=== PATIENT | female | born 1930 | race Caucasian/White ===

== ENCOUNTER 2019-05-20 12:36 | Inpatient (IN) | payer MEDICARE, BC ==
[2019-05-20] VITALS (7 sets, daily range): BP systolic 97–109; BP diastolic 36–47
[~2019-05-20] VITALS: Ht 157.5 cm; Wt 88.5 kg
[~2019-05-20 12:36] MED LIST: ATOR40TA PO; BETA1TAB14 PO; CALC-955 PO; CARV-50 PO; CYAN100082 PO; DIPH-423 PO; FEBU40TA PO; FERR325T28 PO; Famotidine PO; Furosemide PO; HYDR-3965 PO; INSU100I12 SQ; INSU100V36 SQ; Non-Formulary PO; RES15C PO; SYN0.1T PO; ZES2.5T PO
[2019-05-20] MEDS ORDERED: pantoprazole 40 MG vial IV ONE (13:05)
[2019-05-20] MEDS ORDERED: ESOMEPRAZOLE 40 MG VIAL IV ONE (13:15)
[2019-05-20 13:27] LABS: BASOPHILS % (AUTO) 0.6 % (0-1); EOSINOPHILS % (AUTO) 0.5 % (0-6); LYMPHOCYTES # (AUTO) 0.4 X10'3 (1.1-4.8); MEAN CORPUSCULAR HEMOGLOBIN 32.3 PG (27.0-31.0); MEAN CORPUSCULAR HGB CONC 33.2 g/dL (33.0-36.5); MEAN CORPUSCULAR VOLUME 97.4 FL (78-98); MEAN PLATELET VOLUME 8.9 FL (7.4-10.4); MONOCYTES # (AUTO) 0.6 X10'3 (0-0.9); MONOCYTES % (AUTO) 7.9 % (2-12); NEUTROPHILS # (AUTO) 6.9 X10'3 (1.8-7.7); PLATELET COUNT 132 X10'3 (140-440); RED BLOOD COUNT 1.82 X10'6 (4.20-5.60); RED CELL DISTRIBUTION WIDTH 14.7 % (11.5-14.5)
[2019-05-20 13:34] LABS: HEMATOCRIT 17.7 % (35.0-45.0); HEMOGLOBIN 5.9 g/dl (12.0-16.0)
[2019-05-20 13:42] LABS: ALANINE AMINOTRANSFERASE 23 U/L (12-78); ALBUMIN 1.7 G/DL (3.4-5.0); ALBUMIN/GLOBULIN RATIO 0.7 (1.1-1.5); ALKALINE PHOSPHATASE 55 IU/L (46-116); ANION GAP 6 (8-16); ASPARTATE AMINO TRANSFERASE 11 U/L (10-37); BILIRUBIN,TOTAL 0.5 MG/DL (0.1-1.0); BLOOD UREA NITROGEN 115 MG/DL (7-18); BUN/CREATININE RATIO 57.2 (6.6-38.0); CALCIUM 7.8 MG/DL (8.5-10.1); CHLORIDE 108 MMOL/L (99-107); CREATININE 2.01 MG/DL (0.40-0.90); GLUCOSE 165 MG/DL (70-104); POTASSIUM 5.2 MMOL/L (3.5-5.1); SODIUM 139 MMOL/L (135-145); TOTAL CARBON DIOXIDE 25.3 MMOL/L (24-32); TOTAL PROTEIN 4.2 G/DL (6.4-8.2); eGFR 23 ML/MIN
[2019-05-20 14:01] LABS: PARTIAL THROMBOPLASTIN TIME 39 SECONDS (22-32)
[2019-05-20] MEDS ORDERED: phytonadione inj. 5 MG in normal saline 100ml IV soln 99.5 ML IV ONE (14:35)
[2019-05-20 14:55] LABS: CLARITY,URINE SLIGHTLY CLOUDY (Clear); COLOR,URINE YELLOW (Yellow); GLUCOSE, URINE NEGATIVE (Neg); KETONES,URINE NEGATIVE (Neg); LEUKOCYTE ESTERASE ,URINE SMALL (Neg); NITRITES, URINE NEGATIVE (Neg); OCCULT BLOOD,URINE NEGATIVE (Neg); PROTEIN,URINE NEGATIVE (Neg); UA COLLECTION TYPE STRAIGHT CATH; UROBILINOGEN,URINE 0.2 E.U/dL (0.2-1.0)
--- NOTE | 2019-05-20 15:08 | NUR ---
WENDY IN THE LAB CALLED STATING PT "HAS AN ANTIBODY AND IT WILL STILL BE APROX 15-20MIN" SHE INQUIRED IF PT HAS HAD TRANSFUSIONS IN THE PAST OR MULTIPLE KIDS. PER PT SHE IS NOT SURE IF SHE HAS HAD A TRANSFUSION IN THE PAST AND SHE HAS 3 KIDS. WENDY NOTIFIED
[2019-05-20] MEDS ORDERED: ATOR10TA70 PO (15:13)
[2019-05-20] MEDS ORDERED: FURO-149 PO (15:16)
--- NOTE | 2019-05-20 15:18 | NUR ---
spoke with dr meng about pt bp 80/46. no new orders. stated awaiting call back from dr dan about admission. will continue to monitor pt.
--- NOTE | 2019-05-20 15:20 | NUR ---
DR HAYWOOD NOTIFIED BLOOD TAKING LONGER DUE TO "ANTIBODIES PER BLOOD BANK.
[2019-05-20] MEDS ORDERED: WARF6TAB49 PO ×2 (15:21→15:48)
[2019-05-20] MEDS ORDERED: LEVO88TA7 PO (15:23)
[2019-05-20 15:26] LABS: BACTERIA,URINE 1+ /HPF (Neg); SQUAMOUS EPITHELIAL CELL,UR NONE SEEN /LPF (FEW)
[2019-05-20] MEDS ORDERED: LACT1CAP65 PO (15:26)
[2019-05-20 15:27] LABS: HYALINE CASTS 0-3 /LPF (NEGATIVE); RBC,URINE 0-2 /HPF (0-2); WBC CLUMPS,URINE MODERATE /HPF (NEGATIVE)
[2019-05-20] MEDS ORDERED: MULT-1133 PO (15:38)
[2019-05-20] MEDS ORDERED: FISH12002 PO (15:40)
[2019-05-20 15:43] LABS: ANISOCYTOSIS 1+; PLATELET ESTIMATE DECREASED; TOTAL CELLS COUNTED 100
[2019-05-20] MEDS ORDERED: ANTI1CAP5 PO (15:43)
[2019-05-20 15:44] LABS: SCHISTOCYTES FEW
[2019-05-20 15:45] LABS: POLYCHROMASIA FEW
[2019-05-20] MEDS ORDERED: IBAN150T21 PO (15:50)
[2019-05-20] MEDS ORDERED: OLME5TAB6 PO (15:54)
[2019-05-20] MEDS ORDERED: sodium phosphate inj. 30 MMOL in dextrose 5%-water 250 ML IV PRN (16:00)
[2019-05-20] MEDS ORDERED: magnesium 2GM in 50ml NS 50 ML IV PRN (16:00)
[2019-05-20] MEDS ORDERED: magnesium Cl slow-release 64mg tablet PO PRN (16:00)
[2019-05-20] MEDS ORDERED: Neutra Phos packet PO PRN (16:00)
[2019-05-20] MEDS ORDERED: magnesium 4gm in 100ml NS 100 ML IV PRN (16:00)
[2019-05-20] MEDS ORDERED: potassium Cl 20 mEq SR tablet PO PRN ×2 (16:00)
[2019-05-20] MEDS ORDERED: ondansetron/PF 4mg/2ml inj IV PRN (16:00)
[2019-05-20] MEDS ORDERED: sodium phosphate inj. 15 MMOL in dextrose 5%-water 150 ML IV PRN (16:00)
[2019-05-20] MEDS: sodium chloride 0.45% 1,000 ML IV SCH (16:00)
[2019-05-20] MEDS: K, MAG and/or Phos replacement - Verify level? MC SCH (16:00)
[2019-05-20] MEDS: pantoprazole 40MG/NS 100ML BAG 100 ML IV SCH ×2 (16:34→21:43)
[2019-05-20 17:10] LABS: AMYLASE 31 U/L (25-115); LIPASE 120 U/L (73-393)
[2019-05-20 17:49] LABS: HEMOGLOBIN A1C 5.6 % (4.5-6.2)
[2019-05-20 18:02] LABS: MEAN CORPUSCULAR HEMOGLOBIN 31.2 PG (27.0-31.0); MEAN CORPUSCULAR HGB CONC 33.8 g/dL (33.0-36.5); MEAN PLATELET VOLUME 8.3 FL (7.4-10.4); PLATELET COUNT 135 X10'3 (140-440); RED BLOOD COUNT 2.26 X10'6 (4.20-5.60); RED CELL DISTRIBUTION WIDTH 15.9 % (11.5-14.5); WHITE BLOOD COUNT 11.7 X10'3 (4.5-11.0)
[2019-05-20 18:07] LABS: HEMATOCRIT 20.8 % (35.0-45.0)
--- NOTE | 2019-05-20 19:37 | NUR ---
SECOND UNIT OF BLOOD TRANSFUSION COMPLETED. WILL HAVE A REPEAT H&H DRAWN IN AN HOUR PER SKIP PIT WORKER MARCI.
[2019-05-20] MEDS: lactobacillus rhamnosus 10,000 MMU CELLS/CAPSULE PO SCH (20:00)
[2019-05-20] MEDS: carVEDilol 12.5mg tablet PO SCH (20:00)
[2019-05-20] MEDS ORDERED: desmopressin inj. 20 MCG in normal saline 100ml IV soln 100 ML IV ONE (20:25)
[2019-05-20] MEDS: atorvastatin 10mg tablet PO SCH (21:00)
[2019-05-20 21:26] LABS: HEMATOCRIT 25.3 % (35.0-45.0); HEMOGLOBIN 8.6 g/dl (12.0-16.0); MEAN CORPUSCULAR HEMOGLOBIN 31.1 PG (27.0-31.0); MEAN CORPUSCULAR HGB CONC 33.9 g/dL (33.0-36.5); MEAN CORPUSCULAR VOLUME 91.9 FL (78-98); MEAN PLATELET VOLUME 8.6 FL (7.4-10.4); PLATELET COUNT 123 X10'3 (140-440); RED BLOOD COUNT 2.76 X10'6 (4.20-5.60); RED CELL DISTRIBUTION WIDTH 15.7 % (11.5-14.5)
--- NOTE | 2019-05-20 21:50 | NUR ---
GOT PT ANOTHER BLANKET, NO FURTHER NEEDS AT THIS TIME.
[2019-05-21] VITALS (38 sets, daily range): BP systolic 67–125; BP diastolic 25–53
[2019-05-21] MEDS: pantoprazole 40MG/NS 100ML BAG 100 ML IV SCH ×5 (03:00→18:56)
[2019-05-21] MEDS: sodium chloride 0.45% 1,000 ML IV SCH ×3 (03:22→19:35)
[2019-05-21 05:45] LABS: BASOPHILS % (AUTO) 0.5 % (0-1); EOSINOPHILS % (AUTO) 0.3 % (0-6); HEMATOCRIT 26.6 % (35.0-45.0); HEMOGLOBIN 9.2 g/dl (12.0-16.0); LYMPHOCYTES # (AUTO) 0.6 X10'3 (1.1-4.8); LYMPHOCYTES % (AUTO) 6.4 % (21-51); MEAN CORPUSCULAR HEMOGLOBIN 31.6 PG (27.0-31.0); MEAN CORPUSCULAR HGB CONC 34.6 g/dL (33.0-36.5); MEAN CORPUSCULAR VOLUME 91.2 FL (78-98); MEAN PLATELET VOLUME 8.8 FL (7.4-10.4); MONOCYTES # (AUTO) 0.6 X10'3 (0-0.9); MONOCYTES % (AUTO) 6.6 % (2-12); NEUTROPHILS # (AUTO) 7.5 X10'3 (1.8-7.7); NEUTROPHILS % (AUTO) 86.2 % (42-75); PLATELET COUNT 113 X10'3 (140-440); RED BLOOD COUNT 2.91 X10'6 (4.20-5.60); RED CELL DISTRIBUTION WIDTH 15.6 % (11.5-14.5); WHITE BLOOD COUNT 8.7 X10'3 (4.5-11.0)
[2019-05-21 05:59] LABS: PARTIAL THROMBOPLASTIN TIME 25 SECONDS (22-32)
[2019-05-21 06:09] LABS: ALANINE AMINOTRANSFERASE 21 U/L (12-78); ALBUMIN/GLOBULIN RATIO 0.8 (1.1-1.5); ALKALINE PHOSPHATASE 44 IU/L (46-116); ANION GAP 10 (8-16); ASPARTATE AMINO TRANSFERASE 9 U/L (10-37); BLOOD UREA NITROGEN 123 MG/DL (7-18); BUN/CREATININE RATIO 61.8 (6.6-38.0); CALCIUM 7.6 MG/DL (8.5-10.1); CHLORIDE 109 MMOL/L (99-107); CREATININE 1.99 MG/DL (0.40-0.90); GLUCOSE 125 MG/DL (70-104); MAGNESIUM 1.6 MG/DL (1.5-2.4); PHOSPHORUS 2.1 MG/DL (2.3-4.5); POTASSIUM 4.3 MMOL/L (3.5-5.1); SODIUM 141 MMOL/L (135-145); TOTAL CARBON DIOXIDE 21.6 MMOL/L (24-32); TOTAL PROTEIN 4.4 G/DL (6.4-8.2); eGFR 24 ML/MIN
[2019-05-21 06:36] LABS: SODIUM,URINE RANDOM 24 MEQ/L
[2019-05-21 06:37] LABS: TOTAL PROTEIN,URINE RANDOM < 6.0 MG/DL
--- NOTE | 2019-05-21 06:38 | NUR ---
Patient in room CICU 2013. I have received report from Meryl and had the opportunity to ask questions and assume patient care.
[2019-05-21] MEDS: K, MAG and/or Phos replacement - Verify level? MC SCH (06:39)
[2019-05-21] MEDS ORDERED: ferrous sulfate 325mg tablet PO SCH (08:00)
[2019-05-21] MEDS: ferrous sulfate 300mg/5ml UD oral liquid PO SCH (08:00)
[2019-05-21] MEDS: losartan 25mg tablet PO SCH (08:04)
[2019-05-21] MEDS: levoTHYROXINE 88mcg tablet PO SCH (08:04)
[2019-05-21] MEDS: multivitamins, therapeutics tablet PO SCH (08:04)
[2019-05-21 08:05] LABS: TOTAL CELLS COUNTED 100
[2019-05-21] MEDS: lactobacillus rhamnosus 10,000 MMU CELLS/CAPSULE PO SCH ×2 (08:05→21:08)
[2019-05-21] MEDS: carVEDilol 12.5mg tablet PO SCH ×2 (08:05→21:08)
[2019-05-21 08:06] LABS: ANISOCYTOSIS 1+; PLATELET ESTIMATE DECREASED
[2019-05-21 08:07] LABS: POIKILOCYTOSIS FEW; POLYCHROMASIA FEW
[2019-05-21] MEDS ORDERED: fentaNYL/PF 50MCG/1 ML 2ML syringe ONE (11:53)
[2019-05-21] MEDS ORDERED: LIDOcaine Viscous 15ml cup ONE (11:53)
[2019-05-21] MEDS ORDERED: MIDAZolam 5mg/5ml vial ONE (11:53)
--- NOTE | 2019-05-21 11:53 | NUR ---
Report given to Yuan.
--- NOTE | 2019-05-21 12:00 | NUR ---
During rounds, Dr. Parada notified about decreased urine output; orders for 1/2NS with 20meqK. Also, MD aware of peripheral edema and chronic DVTs. Dr. Parada aware that patient continues to be drowsy off of sedation; he would like RN/RT to obtain weaning parameters later. Patient has been on spontaneous since 1000. emphasized that staff does NOT restart Versed or Fentanyl and to only use Ativan as necessary; [facility] [place] [employer]. Orders to D/C right femoral central line; however, MD would like to keep ART line in for obtaining ABGs.
[2019-05-21 12:26] LABS: HEMATOCRIT 25.6 % (35.0-45.0); HEMOGLOBIN 8.8 g/dl (12.0-16.0); MEAN CORPUSCULAR HEMOGLOBIN 31.6 PG (27.0-31.0); MEAN CORPUSCULAR HGB CONC 34.4 g/dL (33.0-36.5); MEAN CORPUSCULAR VOLUME 91.9 FL (78-98); MEAN PLATELET VOLUME 8.7 FL (7.4-10.4); PLATELET COUNT 103 X10'3 (140-440); RED BLOOD COUNT 2.78 X10'6 (4.20-5.60); RED CELL DISTRIBUTION WIDTH 15.8 % (11.5-14.5)
[2019-05-21] MEDS ORDERED: normal saline 500ml IV soln 500 ML IV ONE (13:40)
--- NOTE | 2019-05-21 14:15 | NUR ---
Patient post-EGD with low blood pressures: SBP in the 80-90s and MAP between 55-60. Dr. Mckenzie from GI aware with 500ml bolus administered; some improvement noted. Dr. Parada notified as well with no new orders; continue 150ml/h of 1/2NS. Patient drowsy, but easily arrousable and alert. Will continue to monitor.
--- NOTE | 2019-05-21 16:00 | NUR ---
Patient less drowsy, but still unable to follow commands; weaning parameters performed by RT. notified that patient does not qualify for extubation yet. Will continue to monitor. Addendum: 05/21/19 at 1642 by Yuan Carbajal RN Please disregard note; wrong patient.
--- NOTE | 2019-05-21 18:27 | NUR ---
Problems reprioritized. Patient report given, questions answered & plan of care reviewed with Carly SNELL.
[2019-05-21 18:29] LABS: HEMOGLOBIN 8.6 g/dl (12.0-16.0); MEAN CORPUSCULAR HEMOGLOBIN 31.3 PG (27.0-31.0); MEAN CORPUSCULAR HGB CONC 34.3 g/dL (33.0-36.5); MEAN CORPUSCULAR VOLUME 91.4 FL (78-98); MEAN PLATELET VOLUME 8.2 FL (7.4-10.4); PLATELET COUNT 109 X10'3 (140-440); RED BLOOD COUNT 2.73 X10'6 (4.20-5.60); RED CELL DISTRIBUTION WIDTH 15.9 % (11.5-14.5); WHITE BLOOD COUNT 7.2 X10'3 (4.5-11.0)
--- NOTE | 2019-05-21 18:55 | NUR ---
I have received report and assumed care of pt, pt resting in bed rise and fall of chest cavity equile and symmetrical. vs as charted no distress noted
--- NOTE | 2019-05-21 19:23 | NUR ---
hs cares complete pt tolerated well no needs at this time
[2019-05-21] MEDS: acetaminophen 325mg tablet PO PRN (21:07)
[2019-05-21] MEDS: atorvastatin 10mg tablet PO SCH (21:08)
--- NOTE | 2019-05-21 21:45 | NUR ---
late entry pt medicated for head ache pt denies discomfort now
[2019-05-22] VITALS (19 sets, daily range): BP systolic 87–139; BP diastolic 40–63
[2019-05-22] MEDS: pantoprazole 40MG/NS 100ML BAG 100 ML IV SCH ×2 (00:03→05:16)
[2019-05-22] MEDS: sodium chloride 0.45% 1,000 ML IV SCH ×2 (02:45→08:55)
[2019-05-22 03:02] LABS: BASOPHILS % (AUTO) 0.4 % (0-1); EOSINOPHILS # (AUTO) 0.1 X10'3 (0-0.9); EOSINOPHILS % (AUTO) 2.4 % (0-6); HEMATOCRIT 22.9 % (35.0-45.0); HEMOGLOBIN 7.9 g/dl (12.0-16.0); LYMPHOCYTES # (AUTO) 0.6 X10'3 (1.1-4.8); LYMPHOCYTES % (AUTO) 9.4 % (21-51); MEAN CORPUSCULAR HEMOGLOBIN 31.7 PG (27.0-31.0); MEAN CORPUSCULAR HGB CONC 34.3 g/dL (33.0-36.5); MEAN CORPUSCULAR VOLUME 92.3 FL (78-98); MEAN PLATELET VOLUME 8.4 FL (7.4-10.4); MONOCYTES # (AUTO) 0.4 X10'3 (0-0.9); MONOCYTES % (AUTO) 6.5 % (2-12); NEUTROPHILS % (AUTO) 81.3 % (42-75); PLATELET COUNT 99 X10'3 (140-440); RED BLOOD COUNT 2.48 X10'6 (4.20-5.60); RED CELL DISTRIBUTION WIDTH 15.7 % (11.5-14.5); WHITE BLOOD COUNT 6.1 X10'3 (4.5-11.0)
[2019-05-22 03:13] LABS: PARTIAL THROMBOPLASTIN TIME 32 SECONDS (22-32)
[2019-05-22 03:25] LABS: ALANINE AMINOTRANSFERASE 20 U/L (12-78); ALBUMIN 1.7 G/DL (3.4-5.0); ALBUMIN/GLOBULIN RATIO 0.7 (1.1-1.5); ALKALINE PHOSPHATASE 39 IU/L (46-116); ANION GAP 7 (8-16); ASPARTATE AMINO TRANSFERASE 13 U/L (10-37); BILIRUBIN,TOTAL 0.7 MG/DL (0.1-1.0); BLOOD UREA NITROGEN 97 MG/DL (7-18); CALCIUM 7.2 MG/DL (8.5-10.1); CHLORIDE 110 MMOL/L (99-107); CREATININE 1.94 MG/DL (0.40-0.90); GLUCOSE 113 MG/DL (70-104); MAGNESIUM 1.6 MG/DL (1.5-2.4); PHOSPHORUS 2.7 MG/DL (2.3-4.5); POTASSIUM 3.9 MMOL/L (3.5-5.1); SODIUM 138 MMOL/L (135-145); TOTAL CARBON DIOXIDE 21.5 MMOL/L (24-32); eGFR 24 ML/MIN
[2019-05-22 06:11] LABS: HEMATOCRIT 24.1 % (35.0-45.0); HEMOGLOBIN 8.2 g/dl (12.0-16.0); MEAN CORPUSCULAR HEMOGLOBIN 31.5 PG (27.0-31.0); MEAN CORPUSCULAR VOLUME 92.5 FL (78-98); MEAN PLATELET VOLUME 8.5 FL (7.4-10.4); PLATELET COUNT 108 X10'3 (140-440); RED CELL DISTRIBUTION WIDTH 15.9 % (11.5-14.5); WHITE BLOOD COUNT 6.3 X10'3 (4.5-11.0)
--- NOTE | 2019-05-22 06:14 | NUR ---
report given to receiving rn plan of care reviewed
[2019-05-22] MEDS: K, MAG and/or Phos replacement - Verify level? MC SCH (08:00)
[2019-05-22] MEDS: losartan 25mg tablet PO SCH (08:00)
[2019-05-22] MEDS: lactobacillus rhamnosus 10,000 MMU CELLS/CAPSULE PO SCH ×2 (08:23→20:12)
[2019-05-22] MEDS: levoTHYROXINE 88mcg tablet PO SCH (08:23)
[2019-05-22] MEDS: multivitamins, therapeutics tablet PO SCH (08:23)
[2019-05-22] MEDS: carVEDilol 12.5mg tablet PO SCH ×2 (08:23→20:13)
[2019-05-22] MEDS: ferrous sulfate 300mg/5ml UD oral liquid PO SCH (08:30)
[2019-05-22] MEDS ORDERED: normal saline 1000ml 1,000 ML IV SCH (10:50)
[2019-05-22] MEDS: levoFLOXACIN 250mg tablet PO SCH (11:40)
--- NOTE | 2019-05-22 14:41 | NUR ---
Patient transferred to [facility] 3014-B in recliner; report given to Heide SNELL; all questions answered. Sent with dentures, ringsx4, wristwatch, shoes, clothing, and purse with wallet. Patient declined having staff count cook or notate contents.
--- NOTE | 2019-05-22 14:44 | NUR ---
Received to room via recliner. Report from Yuan. Oriented to room, unit, and plan of care.
--- NOTE | 2019-05-22 18:21 | NUR ---
Problems reprioritized. Patient report given, questions answered & plan of care reviewed with Ivania.
[2019-05-22] MEDS: acetaminophen 325mg tablet PO PRN (18:39)
--- NOTE | 2019-05-22 18:45 | NUR ---
Patient in room PCU 3014. I have received report from ALIS Haskins and had the opportunity to ask questions and assume patient care.
[2019-05-22] MEDS: atorvastatin 10mg tablet PO SCH (20:13)
[2019-05-22] MEDS: ESOMEPRAZOLE 40 MG VIAL IV SCH (21:09)
[2019-05-23 02:00] VITALS: BP 96/32
[2019-05-23 05:24] LABS: BASOPHILS % (AUTO) 0.1 % (0-1); EOSINOPHILS # (AUTO) 0.1 X10'3 (0-0.9); EOSINOPHILS % (AUTO) 1.1 % (0-6); HEMATOCRIT 23.4 % (35.0-45.0); LYMPHOCYTES # (AUTO) 0.5 X10'3 (1.1-4.8); MEAN CORPUSCULAR HEMOGLOBIN 31.5 PG (27.0-31.0); MEAN CORPUSCULAR HGB CONC 34.1 g/dL (33.0-36.5); MEAN CORPUSCULAR VOLUME 92.6 FL (78-98); MEAN PLATELET VOLUME 8.9 FL (7.4-10.4); MONOCYTES # (AUTO) 0.4 X10'3 (0-0.9); MONOCYTES % (AUTO) 6.6 % (2-12); NEUTROPHILS # (AUTO) 5.8 X10'3 (1.8-7.7); NEUTROPHILS % (AUTO) 85.2 % (42-75); PLATELET COUNT 114 X10'3 (140-440); RED BLOOD COUNT 2.52 X10'6 (4.20-5.60); RED CELL DISTRIBUTION WIDTH 15.6 % (11.5-14.5); WHITE BLOOD COUNT 6.8 X10'3 (4.5-11.0)
[2019-05-23 05:58] LABS: ALANINE AMINOTRANSFERASE 25 U/L (12-78); ALBUMIN 1.9 G/DL (3.4-5.0); ALBUMIN/GLOBULIN RATIO 0.7 (1.1-1.5); ALKALINE PHOSPHATASE 51 IU/L (46-116); ANION GAP 10 (8-16); ASPARTATE AMINO TRANSFERASE 20 U/L (10-37); BILIRUBIN,TOTAL 0.6 MG/DL (0.1-1.0); BLOOD UREA NITROGEN 74 MG/DL (7-18); BUN/CREATININE RATIO 41.6 (6.6-38.0); CALCIUM 7.5 MG/DL (8.5-10.1); CHLORIDE 105 MMOL/L (99-107); CREATININE 1.78 MG/DL (0.40-0.90); GLUCOSE 97 MG/DL (70-104); MAGNESIUM 1.7 MG/DL (1.5-2.4); PHOSPHORUS 2.3 MG/DL (2.3-4.5); POTASSIUM 3.9 MMOL/L (3.5-5.1); SODIUM 134 MMOL/L (135-145); TOTAL CARBON DIOXIDE 19.2 MMOL/L (24-32); TOTAL PROTEIN 4.6 G/DL (6.4-8.2); eGFR 27 ML/MIN
--- NOTE | 2019-05-23 06:24 | NUR ---
Problems reprioritized. Patient report given, questions answered & plan of care reviewed with ALIS Newman.
[2019-05-23 07:25] VITALS: BP 134/65
[2019-05-23] MEDS: K, MAG and/or Phos replacement - Verify level? MC SCH (08:00)
[2019-05-23] MEDS: ESOMEPRAZOLE 40 MG VIAL IV SCH ×2 (08:32→20:34)
[2019-05-23] MEDS: carVEDilol 12.5mg tablet PO SCH ×2 (08:33→20:33)
[2019-05-23] MEDS: multivitamins, therapeutics tablet PO SCH (08:33)
[2019-05-23] MEDS: losartan 25mg tablet PO SCH (08:33)
[2019-05-23] MEDS: levoTHYROXINE 88mcg tablet PO SCH (08:33)
[2019-05-23] MEDS: lactobacillus rhamnosus 10,000 MMU CELLS/CAPSULE PO SCH ×2 (08:33→20:33)
[2019-05-23] MEDS: ferrous sulfate 325mg tablet PO SCH (08:34)
[2019-05-23 11:00] VITALS: BP 108/67
[2019-05-23] MEDS: levoFLOXACIN 250mg tablet PO SCH (11:16)
[2019-05-23 15:00] VITALS: BP 113/61
[2019-05-23 18:00] VITALS: BP 133/64
--- NOTE | 2019-05-23 18:45 | NUR ---
Problems reprioritized. Patient report given, questions answered & plan of care reviewed with ALIS Guzman.
--- NOTE | 2019-05-23 18:46 | NUR ---
Patient in room PCU 3014. I have received report from ALIS Valentine and had the opportunity to ask questions and assume patient care.
[2019-05-23] MEDS: atorvastatin 10mg tablet PO SCH (20:33)
[2019-05-23 22:00] VITALS: BP 138/67
[2019-05-24 02:00] VITALS: BP 117/60
[2019-05-24 06:25] LABS: BASOPHILS % (AUTO) 0.3 % (0-1); EOSINOPHILS # (AUTO) 0.1 X10'3 (0-0.9); EOSINOPHILS % (AUTO) 1.1 % (0-6); HEMATOCRIT 23.6 % (35.0-45.0); HEMOGLOBIN 8.1 g/dl (12.0-16.0); LYMPHOCYTES # (AUTO) 0.5 X10'3 (1.1-4.8); LYMPHOCYTES % (AUTO) 7.3 % (21-51); MEAN CORPUSCULAR HEMOGLOBIN 31.4 PG (27.0-31.0); MEAN CORPUSCULAR HGB CONC 34.1 g/dL (33.0-36.5); MEAN CORPUSCULAR VOLUME 92.1 FL (78-98); MEAN PLATELET VOLUME 8.3 FL (7.4-10.4); MONOCYTES # (AUTO) 0.6 X10'3 (0-0.9); MONOCYTES % (AUTO) 8.5 % (2-12); NEUTROPHILS # (AUTO) 5.5 X10'3 (1.8-7.7); NEUTROPHILS % (AUTO) 82.8 % (42-75); PLATELET COUNT 127 X10'3 (140-440); RED BLOOD COUNT 2.56 X10'6 (4.20-5.60); RED CELL DISTRIBUTION WIDTH 15.6 % (11.5-14.5); WHITE BLOOD COUNT 6.6 X10'3 (4.5-11.0)
--- NOTE | 2019-05-24 06:27 | NUR ---
Problems reprioritized. Patient report given, questions answered & plan of care reviewed with ALIS Mcdowell.
[2019-05-24 06:43] LABS: ALANINE AMINOTRANSFERASE 30 U/L (12-78); ALBUMIN/GLOBULIN RATIO 0.7 (1.1-1.5); ALKALINE PHOSPHATASE 62 IU/L (46-116); ANION GAP 9 (8-16); ASPARTATE AMINO TRANSFERASE 23 U/L (10-37); BILIRUBIN,TOTAL 0.5 MG/DL (0.1-1.0); BLOOD UREA NITROGEN 55 MG/DL (7-18); BUN/CREATININE RATIO 32.7 (6.6-38.0); CALCIUM 7.7 MG/DL (8.5-10.1); CHLORIDE 104 MMOL/L (99-107); CREATININE 1.68 MG/DL (0.40-0.90); GLUCOSE 87 MG/DL (70-104); MAGNESIUM 1.6 MG/DL (1.5-2.4); PHOSPHORUS 2.1 MG/DL (2.3-4.5); POTASSIUM 4.1 MMOL/L (3.5-5.1); SODIUM 133 MMOL/L (135-145); TOTAL CARBON DIOXIDE 20.1 MMOL/L (24-32); TOTAL PROTEIN 4.7 G/DL (6.4-8.2); eGFR 29 ML/MIN
[2019-05-24 07:00] VITALS: BP 126/65
[2019-05-24] MEDS: K, MAG and/or Phos replacement - Verify level? MC SCH (07:46)
[2019-05-24] MEDS: levoTHYROXINE 88mcg tablet PO SCH (08:04)
[2019-05-24] MEDS: losartan 25mg tablet PO SCH (08:04)
[2019-05-24] MEDS: ESOMEPRAZOLE 40 MG VIAL IV SCH ×2 (08:04→20:35)
[2019-05-24] MEDS: ferrous sulfate 325mg tablet PO SCH (08:04)
[2019-05-24] MEDS: carVEDilol 12.5mg tablet PO SCH ×2 (08:04→20:35)
[2019-05-24] MEDS: multivitamins, therapeutics tablet PO SCH (08:04)
[2019-05-24] MEDS: lactobacillus rhamnosus 10,000 MMU CELLS/CAPSULE PO SCH ×2 (08:04→20:35)
[2019-05-24] MEDS ORDERED: furosemide 20 MG/2 ML vial IV ONE (09:55)
[2019-05-24] MEDS: levoFLOXACIN 250mg tablet PO SCH (11:46)
[2019-05-24 12:42] VITALS: BP 111/58
[2019-05-24 15:00] VITALS: BP 114/60
[2019-05-24 18:00] VITALS: BP 143/71
--- NOTE | 2019-05-24 18:40 | NUR ---
Problems reprioritized. Patient report given, questions answered & plan of care reviewed with ALIS Blunt.
[2019-05-24] MEDS: atorvastatin 10mg tablet PO SCH (20:35)
[2019-05-24 22:00] VITALS: BP 114/62
[2019-05-25 02:00] VITALS: BP 116/56
[2019-05-25 06:00] VITALS: BP 119/57
[2019-05-25 06:01] LABS: BASOPHILS % (AUTO) 0.6 % (0-1); EOSINOPHILS # (AUTO) 0.1 X10'3 (0-0.9); EOSINOPHILS % (AUTO) 1.1 % (0-6); HEMATOCRIT 22.9 % (35.0-45.0); HEMOGLOBIN 7.8 g/dl (12.0-16.0); LYMPHOCYTES # (AUTO) 0.5 X10'3 (1.1-4.8); LYMPHOCYTES % (AUTO) 7.1 % (21-51); MEAN CORPUSCULAR HEMOGLOBIN 31.3 PG (27.0-31.0); MEAN CORPUSCULAR HGB CONC 34.1 g/dL (33.0-36.5); MEAN CORPUSCULAR VOLUME 91.7 FL (78-98); MEAN PLATELET VOLUME 8.2 FL (7.4-10.4); MONOCYTES # (AUTO) 0.6 X10'3 (0-0.9); MONOCYTES % (AUTO) 8.3 % (2-12); NEUTROPHILS # (AUTO) 6.2 X10'3 (1.8-7.7); NEUTROPHILS % (AUTO) 82.9 % (42-75); PLATELET COUNT 141 X10'3 (140-440); RED BLOOD COUNT 2.49 X10'6 (4.20-5.60); RED CELL DISTRIBUTION WIDTH 15.4 % (11.5-14.5); WHITE BLOOD COUNT 7.5 X10'3 (4.5-11.0)
[2019-05-25 06:10] LABS: ALANINE AMINOTRANSFERASE 25 U/L (12-78); ALBUMIN 1.9 G/DL (3.4-5.0); ALBUMIN/GLOBULIN RATIO 0.7 (1.1-1.5); ALKALINE PHOSPHATASE 67 IU/L (46-116); ANION GAP 9 (8-16); ASPARTATE AMINO TRANSFERASE 11 U/L (10-37); BILIRUBIN,TOTAL 0.5 MG/DL (0.1-1.0); BLOOD UREA NITROGEN 48 MG/DL (7-18); BUN/CREATININE RATIO 29.4 (6.6-38.0); CALCIUM 8.3 MG/DL (8.5-10.1); CHLORIDE 103 MMOL/L (99-107); CREATININE 1.63 MG/DL (0.40-0.90); GLUCOSE 94 MG/DL (70-104); MAGNESIUM 1.5 MG/DL (1.5-2.4); PHOSPHORUS 2.3 MG/DL (2.3-4.5); POTASSIUM 4.3 MMOL/L (3.5-5.1); SODIUM 132 MMOL/L (135-145); TOTAL CARBON DIOXIDE 20.5 MMOL/L (24-32); TOTAL PROTEIN 4.6 G/DL (6.4-8.2); eGFR 30 ML/MIN
--- NOTE | 2019-05-25 06:49 | NUR ---
Patient in room PCU 3014. I have received report from Merlene and had the opportunity to ask questions and assume patient care.
[2019-05-25] MEDS: K, MAG and/or Phos replacement - Verify level? MC SCH (08:00)
[2019-05-25] MEDS: losartan 25mg tablet PO SCH (08:17)
[2019-05-25] MEDS: carVEDilol 12.5mg tablet PO SCH ×2 (08:17→19:34)
[2019-05-25] MEDS: multivitamins, therapeutics tablet PO SCH (08:18)
[2019-05-25] MEDS: lactobacillus rhamnosus 10,000 MMU CELLS/CAPSULE PO SCH ×2 (08:18→19:34)
[2019-05-25] MEDS: levoTHYROXINE 88mcg tablet PO SCH (08:18)
[2019-05-25] MEDS: ferrous sulfate 325mg tablet PO SCH (08:18)
[2019-05-25] MEDS: ESOMEPRAZOLE 40 MG VIAL IV SCH (08:19)
--- NOTE | 2019-05-25 10:25 | NUR ---
Initial: Pt admit w/ UGIB found to have antral gastritis, Darion ulcer, hiatal hernia, reflux esophagitis, and small segment of Goldstein's esophagus per MD note. Receiving nexium, Fe, and MVI. Pt PO 100% full liquids and first solid meals since admit meeting needs. LB 05/24. Will continue to monitor. Rec: 1. continue carb controlled/heart healthy diet 2. wt per rx Addendum: 05/25/19 at [address] Amended: Links added.
[2019-05-25] MEDS: levoFLOXACIN 250mg tablet PO SCH (10:58)
[2019-05-25 11:00] VITALS: BP 108/57
[2019-05-25 13:17] LABS: % IRON SATURATION 19 % (11-46); IRON 33 UG/DL (49-151); TOTAL IRON BINDING CAPACITY 175 UG/DL (259-388)
[2019-05-25 13:45] LABS: FERRITIN 339 NG/ML (8-252)
[2019-05-25 15:00] VITALS: BP 111/54
[2019-05-25] MEDS: pantoprazole 40mg Tablet.DR PO SCH ×2 (15:41→19:34)
[2019-05-25 18:00] VITALS: BP 131/70
--- NOTE | 2019-05-25 18:19 | NUR ---
Problems reprioritized. Patient report given to Anita, questions answered & plan of care reviewed with .
--- NOTE | 2019-05-25 18:20 | NUR ---
[place]ee documentation: I have reviewed and agree with interventions, assessments performed and documented by Chloe JANE. [facility] Medication Administration: For this medication-pass time frame, medication were reviewed, dispensed, administered and documented per hospital policy by Chloe Jane.
--- NOTE | 2019-05-25 18:21 | NUR ---
Problems reprioritized. Patient report given, questions answered & plan of care reviewed with Anita SNELL. Patient stable at transfer of care.
--- NOTE | 2019-05-25 18:27 | NUR ---
Received report from ALIS Morris. Patient is awake and alert on room air, in no apparent distress. Call light and items of frequent use within reach. Will continue to monitor.
[2019-05-25] MEDS: apixaban 5mg tablet PO SCH (19:34)
[2019-05-25] MEDS: atorvastatin 10mg tablet PO SCH (19:34)
[2019-05-25 22:00] VITALS: BP 113/50
[2019-05-26 02:00] VITALS: BP 119/59
[2019-05-26 05:56] LABS: BASOPHILS % (AUTO) 0.4 % (0-1); EOSINOPHILS # (AUTO) 0.1 X10'3 (0-0.9); EOSINOPHILS % (AUTO) 1.1 % (0-6); HEMATOCRIT 22.3 % (35.0-45.0); HEMOGLOBIN 7.7 g/dl (12.0-16.0); LYMPHOCYTES # (AUTO) 0.6 X10'3 (1.1-4.8); LYMPHOCYTES % (AUTO) 7.6 % (21-51); MEAN CORPUSCULAR HEMOGLOBIN 31.9 PG (27.0-31.0); MEAN CORPUSCULAR HGB CONC 34.5 g/dL (33.0-36.5); MEAN CORPUSCULAR VOLUME 92.4 FL (78-98); MEAN PLATELET VOLUME 8.4 FL (7.4-10.4); MONOCYTES # (AUTO) 0.7 X10'3 (0-0.9); MONOCYTES % (AUTO) 8.8 % (2-12); NEUTROPHILS # (AUTO) 6.6 X10'3 (1.8-7.7); NEUTROPHILS % (AUTO) 82.1 % (42-75); PLATELET COUNT 160 X10'3 (140-440); RED BLOOD COUNT 2.41 X10'6 (4.20-5.60); RED CELL DISTRIBUTION WIDTH 15.3 % (11.5-14.5); WHITE BLOOD COUNT 8.1 X10'3 (4.5-11.0)
[2019-05-26 06:00] VITALS: BP 134/67
[2019-05-26 06:09] LABS: ALANINE AMINOTRANSFERASE 22 U/L (12-78); ALBUMIN 1.9 G/DL (3.4-5.0); ALBUMIN/GLOBULIN RATIO 0.7 (1.1-1.5); ALKALINE PHOSPHATASE 69 IU/L (46-116); ANION GAP 7 (8-16); ASPARTATE AMINO TRANSFERASE 14 U/L (10-37); BILIRUBIN,TOTAL 0.4 MG/DL (0.1-1.0); BLOOD UREA NITROGEN 46 MG/DL (7-18); BUN/CREATININE RATIO 23.5 (6.6-38.0); CALCIUM 8.5 MG/DL (8.5-10.1); CHLORIDE 104 MMOL/L (99-107); CREATININE 1.96 MG/DL (0.40-0.90); GLUCOSE 85 MG/DL (70-104); MAGNESIUM 1.6 MG/DL (1.5-2.4); PHOSPHORUS 2.6 MG/DL (2.3-4.5); POTASSIUM 4.9 MMOL/L (3.5-5.1); SODIUM 132 MMOL/L (135-145); TOTAL CARBON DIOXIDE 20.7 MMOL/L (24-32); TOTAL PROTEIN 4.7 G/DL (6.4-8.2); eGFR 24 ML/MIN
--- NOTE | 2019-05-26 06:12 | NUR ---
Problems reprioritized. Patient report given, questions answered & plan of care reviewed with ALIS Latham and ALIS Morris.
--- NOTE | 2019-05-26 06:26 | NUR ---
Patient in room PCU 3011. I have received report from Anita SNELL and had the opportunity to ask questions and assume patient care.
--- NOTE | 2019-05-26 06:35 | NUR ---
Patient in room PCU 3014. I have received report from Anita and had the opportunity to ask questions and assume patient care.
[2019-05-26] MEDS: carVEDilol 12.5mg tablet PO SCH (07:39)
[2019-05-26] MEDS: losartan 25mg tablet PO SCH (07:39)
[2019-05-26] MEDS: levoTHYROXINE 88mcg tablet PO SCH (07:39)
[2019-05-26] MEDS: lactobacillus rhamnosus 10,000 MMU CELLS/CAPSULE PO SCH (07:39)
[2019-05-26] MEDS: pantoprazole 40mg Tablet.DR PO SCH (07:40)
[2019-05-26] MEDS: apixaban 5mg tablet PO SCH (07:40)
[2019-05-26] MEDS: ferrous sulfate 325mg tablet PO SCH (07:40)
[2019-05-26] MEDS: multivitamins, therapeutics tablet PO SCH (07:40)
[2019-05-26 07:41] LABS: TOTAL CELLS COUNTED 100
[2019-05-26 07:42] LABS: PLATELET ESTIMATE NORMAL
[2019-05-26 07:45] LABS: ANISOCYTOSIS 1+; HYPOCHROMASIA 1+; POLYCHROMASIA 1+
[2019-05-26 07:46] LABS: BURR CELLS 1+; POIKILOCYTOSIS FEW
[2019-05-26] MEDS: K, MAG and/or Phos replacement - Verify level? MC SCH (07:47)
[2019-05-26 11:00] VITALS: BP 110/50
[2019-05-26] MEDS: levoFLOXACIN 250mg tablet PO SCH (11:12)
[2019-05-26 15:00] VITALS: BP 123/72
[2019-05-26] MEDS ORDERED: PANT40TA4 PO (15:20)
[2019-05-26] MEDS ORDERED: APIX5TAB3 PO (15:20)
[2019-05-26] MEDS ORDERED: LEVO250T58 PO (15:20)
--- NOTE | 2019-05-26 15:42 | NUR ---
Patient is going to be transferred today at 1600. [facility] arrived at 1530 which was a half hour binh. I explained to them that we were in the process of getting the patient ready and calling report to the receiving facility and they were early. I also informed them that the patient would be ready at the scheduled metal pickling equipment operator time of 1600. The [employer] employee confirmed that the metal pickling equipment operator time was 1600.
--- NOTE | 2019-05-26 15:49 | NUR ---
Received order from Dr. Long for the patient to discharge to [facility]. PIV DC'd from right wrist. Tele box removed. Report called to Rayshawn at 1540. Patient transferred via [facility] in stable condition.
[2019-06-10 09:27] LABS: OCCULT BLOOD STOOL POSITIVE (Neg)
== END 2019-05-26 15:45 | DRG 377 ==
LOC: ER 12:37 → CICU 2S 22:31 → CMPBEDREQ 22:37 → PCU 3S 05-22 15:00
PROVIDERS: ADMIT Internal Medicine Critical Care Medicine; ATTEND Internal Medicine Critical Care Medicine
PROC: 30233N1 Transfusion of Nonautologous Red Blood Cells into Peripheral Vein, Percutaneous Approach (ICD-10-PCS; 2019-05-20)
PROC: 0DB68ZX Excision of Stomach, Via Natural or Artificial Opening Endoscopic, Diagnostic (ICD-10-PCS; principal; 2019-05-21)
PROC: 30233N1 Transfusion of Nonautologous Red Blood Cells into Peripheral Vein, Percutaneous Approach (ICD-10-PCS; 2019-05-21)
DX: K25.4 Chronic or unspecified gastric ulcer with hemorrhage (principal); R57.1 Hypovolemic shock; D68.32 Hemorrhagic disorder due to extrinsic circulating anticoagulants; N17.9 Acute kidney failure, unspecified; D68.9 Coagulation defect, unspecified; K44.9 Diaphragmatic hernia without obstruction or gangrene; H54.8 Legal blindness, as defined in USA; K22.70 Barrett's esophagus without dysplasia; E03.9 Hypothyroidism, unspecified; E11.22 Type 2 diabetes mellitus with diabetic chronic kidney disease; N18.3 Chronic kidney disease, stage 3 (moderate); E78.5 Hyperlipidemia, unspecified; R39.15 Urgency of urination; I95.9 Hypotension, unspecified; D50.0 Iron deficiency anemia secondary to blood loss (chronic); G47.33 Obstructive sleep apnea (adult) (pediatric); K29.70 Gastritis, unspecified, without bleeding; H35.30 Unspecified macular degeneration; H91.90 Unspecified hearing loss, unspecified ear; I12.9 Hypertensive chronic kidney disease with stage 1 through stage 4 chronic kidney disease, or unspecified chronic kidney disease; T45.515A Adverse effect of anticoagulants, initial encounter; I48.2 Chronic atrial fibrillation; Z79.01 Long term (current) use of anticoagulants; Z86.73 Personal history of transient ischemic attack (TIA), and cerebral infarction without residual deficits; Z88.0 Allergy status to penicillin; Z79.890 Hormone replacement therapy; Z95.0 Presence of cardiac pacemaker; Z90.49 Acquired absence of other specified parts of digestive tract; Z98.891 History of uterine scar from previous surgery; Y92.89 Other specified places as the place of occurrence of the external cause
CPT/HCPCS: 36415; 43202; 71045; 80053; 81001; 82150; 82272; 82570; 82728; 82948; 83036; 83540; 83550; 83605; 83690; 83735; 84100; 84156; 84300; 84443; 84540; 85025; 85027; 85610; 85730; 86870; 86885; 86900; 86901; 86905; 86922; 87077; 87081; 87088; 87186; 88305; 88342; 93005; 96365; 96375; 97161; 97530; 99152; 99285; C9113; G0378; J1940; J2250; J2597; J3010; J3430; J7040; P9016

== ENCOUNTER 2019-10-14 14:13 | Emergency (ER) | payer MEDICARE, BC ==
[~2019-10-14] VITALS: Ht 160 cm; Wt 81.8 kg
[~2019-10-14 14:13] MED LIST changes: +ACET-812 PO; +ANTI1CAP5 PO; +APIX2.5T PO; +APIX5TAB3 PO; +ATOR10TA70 PO; -ATOR40TA PO; -BETA1TAB14 PO; -CALC-955 PO; -CYAN100082 PO; -DIPH-423 PO; +DOCU-148 PO; -FEBU40TA PO; +FISH12002 PO; +FURO-149 PO; +FURO40TA4 PO; -Famotidine PO; -Furosemide PO; -HYDR-3965 PO; +IBAN150T16 PO; +IBAN150T21 PO; -INSU100I12 SQ; -INSU100V36 SQ; +L.AC1CAP10 PO; +LACT1CAP65 PO; +LEVO250T58 PO; +LEVO88TA7 PO; +MULT-1133 PO; +MULT-1141 PO; -Non-Formulary PO; +OLME5TAB6 PO; +OMEG-166 PO; +PANT-47 PO; +PANT40TA4 PO; +PRAV40TA3 PO; -RES15C PO; +SYN0.088T PO; -SYN0.1T PO; -ZES2.5T PO
[2019-10-14 14:30] VITALS: BP 155/75
[2019-10-14 15:09] LABS: BASOPHILS % (AUTO) 0.7 % (0-1); EOSINOPHILS # (AUTO) 0.1 X10'3 (0-0.9); EOSINOPHILS % (AUTO) 1.6 % (0-6); HEMOGLOBIN 10.9 g/dl (12.0-16.0); LYMPHOCYTES # (AUTO) 0.7 X10'3 (1.1-4.8); LYMPHOCYTES % (AUTO) 10.8 % (21-51); MEAN CORPUSCULAR HEMOGLOBIN 30.6 PG (27.0-31.0); MEAN CORPUSCULAR HGB CONC 33.2 g/dL (33.0-36.5); MEAN CORPUSCULAR VOLUME 92.2 FL (78-98); MEAN PLATELET VOLUME 8.5 FL (7.4-10.4); MONOCYTES # (AUTO) 0.6 X10'3 (0-0.9); MONOCYTES % (AUTO) 9.9 % (2-12); NEUTROPHILS # (AUTO) 4.9 X10'3 (1.8-7.7); PLATELET COUNT 180 X10'3 (140-440); RED BLOOD COUNT 3.58 X10'6 (4.20-5.60); RED CELL DISTRIBUTION WIDTH 16.5 % (11.5-14.5); WHITE BLOOD COUNT 6.4 X10'3 (4.5-11.0)
[2019-10-14] MEDS ORDERED: GABA-532 PO (15:11)
[2019-10-14 15:22] LABS: ALANINE AMINOTRANSFERASE 23 U/L (12-78); ALBUMIN 3.2 G/DL (3.4-5.0); ALBUMIN/GLOBULIN RATIO 0.9 (1.1-1.5); ALKALINE PHOSPHATASE 91 IU/L (46-116); ANION GAP 12 (8-16); ASPARTATE AMINO TRANSFERASE 20 U/L (10-37); BILIRUBIN,TOTAL 0.9 MG/DL (0.1-1.0); BLOOD UREA NITROGEN 63 MG/DL (7-18); BUN/CREATININE RATIO 23.7 (6.6-38.0); CALCIUM 9.4 MG/DL (8.5-10.1); CHLORIDE 108 MMOL/L (99-107); CREATININE 2.66 MG/DL (0.40-0.90); GLUCOSE 112 MG/DL (70-104); POTASSIUM 4.6 MMOL/L (3.5-5.1); SODIUM 142 MMOL/L (135-145); TOTAL CARBON DIOXIDE 22.3 MMOL/L (24-32); TOTAL PROTEIN 6.6 G/DL (6.4-8.2); eGFR 17 ML/MIN
[2019-10-14 15:30] LABS: TROPONIN I < 0.04 NG/ML (0.0-0.05)
[2019-10-16] MEDS ORDERED: OCUVITE PO (18:14)
[2019-10-16] MEDS ORDERED: CARV-50 PO (18:14)
== END 2019-10-14 16:22 | disposition home or self-care (01) ==
LOC: ER 14:13
DX: M79.671 Pain in right foot (principal); M79.672 Pain in left foot; I48.91 Unspecified atrial fibrillation; I10 Essential (primary) hypertension; E11.9 Type 2 diabetes mellitus without complications; E03.9 Hypothyroidism, unspecified; F10.99 Alcohol use, unspecified with unspecified alcohol-induced disorder; Z86.2 Personal history of diseases of the blood and blood-forming organs and certain disorders involving the immune mechanism; Z88.0 Allergy status to penicillin; Z79.899 Other long term (current) drug therapy; Z79.01 Long term (current) use of anticoagulants; Y90.9 Presence of alcohol in blood, level not specified
CPT/HCPCS: 36415; 71045; 73620; 80053; 83880; 84484; 85025; 99284